=== PATIENT | female | born 1995 | race Caucasian/White ===

== ENCOUNTER 2016-10-19 09:50 | Emergency (ER) | payer SELFPAY ==
[~2016-10-19] VITALS: Ht 154.9 cm; Wt 54.9 kg
[2016-10-19] MEDS ORDERED: PREDNISONE50 MG PO (14:10)
[2016-10-19] MEDS ORDERED: TYLENOL WITH C1 EACH PO (14:10)
[2016-10-19 14:55] VITALS: BP 116/70
== END 2016-10-19 14:55 | disposition home or self-care (01) ==
LOC: EDBD 09:50 → EME 09:50
DX: O99.89 Other specified diseases and conditions complicating pregnancy, childbirth and the puerperium (principal); M54.12 Radiculopathy, cervical region; Z3A.26 26 weeks gestation of pregnancy
CPT/HCPCS: 70551; 72141; 93971; 99281; 99284

== ENCOUNTER 2017-06-04 18:35 | Emergency (ER) | payer OTHER, BC ==
[~2017-06-04] VITALS: Ht 154.9 cm; Wt 50.7 kg
[~2017-06-04 18:35] MED LIST: PREDNISONE50 MG PO; TYLENOL WITH C1 EACH PO
[2017-06-04 21:30] LABS: INTERNAL CONTROL VALID? YES
[2017-06-04] MEDS ORDERED: VALIUM5 MG PO (22:05)
[2017-06-04] MEDS ORDERED: NAPROSYN500 MG PO (22:05)
[2017-06-04 22:29] VITALS: BP 133/83
== END 2017-06-04 22:30 | disposition home or self-care (01) ==
LOC: EME 18:35
PROVIDERS: Physician Assistant
DX: S46.912A Strain of unspecified muscle, fascia and tendon at shoulder and upper arm level, left arm, initial encounter (principal); W18.39XA Other fall on same level, initial encounter; Y93.F9 Activity, other caregiving; Y92.238 Other place in hospital as the place of occurrence of the external cause; Y99.0 Civilian activity done for income or pay; Z98.1 Arthrodesis status
CPT/HCPCS: 72040; 73030; 84703; 99281; 99284; J1885